=== PATIENT | female | born 1950 | race Caucasian/White ===

== ENCOUNTER 2016-12-24 04:47 | Emergency (ER) | payer MEDICARE, OTHER ==
[~2016-12-24] VITALS: Ht 154.9 cm; Wt 64.5 kg
[~2016-12-24 04:47] MED LIST: 5-HTP100 MG PO; ADVIL200 MG PO; ALPHA LIPOIC100 MG PO; ASPIRIN 81M81 MG/TA2 PO; ASPIRIN E.C. 8181 MG PO; BENADRYL25 M2 PO; BENADRYL50 MG; CALCIUM600 M1 PO; CHOLESTOFF; CHOLESTOFF PO; CO Q-1050 MG PO; COQ10; COQ10 PO; CURCUMIN; CURCUMIN PO; FISH OIL1000 MG PO; FOLIC ACID PO; FOLIC ACID0.8 MG PO; GABA PO; L-CARNITINE500 MG PO; M2 MAGNESIUM100 MG PO; MAGNESIUM CITRA1 TAB PO; MAGNESIUM100 MG PO; MANGANESE; MANGANESE PO; MELATONIN3 MG PO; NATURAL E400 IU PO; NATURE'S BLEN5000 IU PO; NIACIN750 MG PO; OCUVITE ADULT1 SGL PO; OCUVITE1 TA1 PO; OMEGA 3 KRILL OIL; OMEGA 3 KRILL OIL PO; OMEGA 31000 MG; OMEGA-3 FISH1000 MG PO; OMEGA-31000 MG PO; PHARMASSURE RE250 MG PO; RETIN A 0.01% TP; RETIN A MICRO TP; RHODIOLA; RHODIOLA PO; TAURINE PO; VAGIFEM10 MCG VG; VITA PO; VITAMIN; VITAMIN B-12100 MCG PO; VITAMIN B6250 MG PO; VITAMIN C PUR1000 MG PO; VITAMIN D31 LIQ; VITAMIN D31000 IU; VITAMIN D31000 IU PO; VITAMIN D5000 IU PO; VITAMIN E100 I3 PO; VITAMIN K100 MCG; VITAMIN K100 MCG PO; VITAMIN PO; ZINC; ZINC PO; ZINC10 M1 PO; [UNRECOGNIZED DRUG - OTHER]; [UNRECOGNIZED DRUG - OTHER]; [UNRECOGNIZED DRUG - OTHER] PO; [UNRECOGNIZED DRUG - OTHER] PO
[2016-12-24 04:48] VITALS: TEMP 98.1
[2016-12-24] MEDS ORDERED: VAGIFEM10 MCG VG (04:56)
[2016-12-24] MEDS ORDERED: RETIN-A CR0.1 45GM TP (04:56)
[2016-12-24] MEDS ORDERED: LATISSE 5 ML5 ML TOP (04:56)
[2016-12-24] MEDS ORDERED: SYNTHROID0.075 MG/T PO (04:56)
[2016-12-24 05:44] LABS: ADJUSTED CALCIUM 8.9 mg/dL (8.4-10.2); ALANINE AMINOTRANSFERASE 37 U/L (9-52); ALBUMIN 4.6 gm/dL (3.5-5.0); ALKALINE PHOSPHATASE 84 U/L (50-136); ANION GAP 14 mmol/L (7-16); BILIRUBIN,TOTAL 1.1 mg/dL (0.0-1.0); BLOOD UREA NITROGEN 19 mg/dL (7-17); CALCIUM 9.4 mg/dL (8.4-10.2); CARBON DIOXIDE 23 mmol/L (22-30); CHLORIDE 103 mmol/L (98-107); GLUCOSE 167 mg/dL (74-106); LIPASE 140 U/L (23-300); POTASSIUM 3.6 mmol/L (3.4-5.0); SODIUM 139 mmol/L (137-145); TOTAL PROTEIN 7.7 gm/dL (6.4-8.2)
[2016-12-24 05:45] LABS: C-REACTIVE PROTEIN < 0.5 mg/dL (0.0-0.9)
[2016-12-24 05:48] LABS: PH 6 (5-8); SQUAMOUS EPITHELIAL 0-2 /hpf; URINE APPEARANCE Clear; URINE BACTERIA None Seen /hpf; URINE BILIRUBIN Negative (NEGATIVE); URINE BLOOD 2+ (NEGATIVE); URINE COLOR Yellow; URINE GLUCOSE Negative (NEGATIVE); URINE KETONE 1+ (NEGATIVE); URINE RBC >50 /hpf; URINE UROBILINOGEN Negative (NEGATIVE)
[2016-12-24 05:49] LABS: URINE WBC 0-2 /hpf
[2016-12-24 07:06] LABS: BASO % 0.3 % (0.0-2.0); EOS % 0.3 % (0-4.0); GRAN # 7.4 (1.4-6.5); GRAN % 78.4 % (42.2-75.2); HEMATOCRIT 42.6 % (37.0-47.0); HEMOGLOBIN 14.2 g/dl (12.5-16.0); LYMPH # 1.5 (1.2-3.4); MEAN CELL VOLUME 95 fl (80.0-100.0); MEAN CORPUSCULAR HEMOGLOBIN 32 pg (27.0-31.0); MEAN CORPUSCULAR HGB CONC 33 g/dl (33.0-37.0); MEAN PLATELET VOLUME 10.2 fl (7.4-10.4); MONO # 0.4 (0.1-0.6); MONO % 4.7 % (1.7-9.3); PLATELET COUNT 217 K/mm3 (130-400); REDCELL DISTRIBUTION WIDTH-CV 13.2 % (11.5-14.5); WHITE BLOOD COUNT 9.4 K/mm3 (4.8-10.8)
[2016-12-24] MEDS ORDERED: ZOFRAN ODT4 MG PO (08:10)
[2016-12-24] MEDS ORDERED: PERCOCET 325 MG1 TA2 PO (08:10)
[2016-12-24 08:16] VITALS: BP 122/73
[2016-12-24 08:59] VITALS: PULSE 73
== END 2016-12-24 08:52 | disposition home or self-care (01) ==
LOC: COL.ER 04:47
PROVIDERS: Emergency Medicine
DX: N13.2 Hydronephrosis with renal and ureteral calculous obstruction (principal); Z87.442 Personal history of urinary calculi
CPT/HCPCS: J2405; J7030; Q9967

== ENCOUNTER → 2016-12-26 | Outpatient (CLI) | payer MEDICARE, OTHER ==
[~2016-12-26] MED LIST changes: +LATISSE 5 ML5 ML TOP; +PERCOCET 325 MG1 TA2 PO; +RETIN-A CR0.1 45GM TP; +SYNTHROID0.075 MG/T PO; +ZOFRAN ODT4 MG PO
== END ==
LOC: MC.RAD 13:26
DX: Z12.31 Encounter for screening mammogram for malignant neoplasm of breast (principal)

== ENCOUNTER 2016-12-28 11:58 | Day surgery (SDC) | payer MEDICARE, OTHER ==
[2016-12-28] VITALS (7 sets, daily range): BP systolic 143–176; BP diastolic 74–89; PULSE 51–65; TEMP 97.4–97.8
[~2016-12-28] VITALS: Ht 154.9 cm; Wt 29.5 kg
[2016-12-28] MEDS ORDERED: VAGIFEM10 MCG VG (13:21)
== END 2016-12-28 17:25 | disposition home or self-care (01) ==
LOC: SDCO 11:58
DX: N20.1 Calculus of ureter (principal); C44.91 Basal cell carcinoma of skin, unspecified
CPT/HCPCS: C1769; C2617; J0690; J1100; J1885; J2405; J2704; J3010; J7120; Q9967

== ENCOUNTER 2017-07-19 17:26 | Emergency (ER) | payer MEDICARE, OTHER ==
[~2017-07-19] VITALS: Ht 154.9 cm; Wt 62.3 kg
[2017-07-19 17:41] VITALS: TEMP 98.2
[2017-07-19] MEDS ORDERED: ASPIRIN 81M81 MG/TA2 PO (18:27)
[2017-07-19] MEDS ORDERED: NORCO 325 MG-7.1 TAB PO (19:12)
[2017-07-19 19:30] VITALS: BP 146/91; PULSE 69
== END 2017-07-19 19:32 | disposition home or self-care (01) ==
LOC: COL.ER 17:26
DX: S52.502A Unspecified fracture of the lower end of left radius, initial encounter for closed fracture (principal); S52.602A Unspecified fracture of lower end of left ulna, initial encounter for closed fracture; E03.9 Hypothyroidism, unspecified; Z79.82 Long term (current) use of aspirin; W10.9XXA Fall (on) (from) unspecified stairs and steps, initial encounter; Y92.009 Unspecified place in unspecified non-institutional (private) residence as the place of occurrence of the external cause

== ENCOUNTER 2017-11-08 08:06 | Inpatient (IN) | payer MEDICARE, OTHER ==
[2017-11-08] VITALS (11 sets, daily range): BP systolic 104–134; BP diastolic 71–88; PULSE 68–95; TEMP 97.8–98.1; O2SAT 93–96
[~2017-11-08] VITALS: Ht 154.9 cm; Wt 63.2 kg
[~2017-11-08 08:06] MED LIST changes: +NORCO 325 MG-7.1 TAB PO
[2017-11-08 08:44] LABS: BASO % 0.4 % (0.0-2.0); EOS % 0.9 % (0-4.0); GRAN # 2.3 (1.4-6.5); GRAN % 50.4 % (42.2-75.2); HEMATOCRIT 45.2 % (37.0-47.0); HEMOGLOBIN 14.8 g/dl (12.5-16.0); LYMPH # 1.8 (1.2-3.4); LYMPH % 40.7 % (20.0-51.0); MEAN CELL VOLUME 95 fl (80.0-100.0); MEAN CORPUSCULAR HEMOGLOBIN 31 pg (27.0-31.0); MEAN CORPUSCULAR HGB CONC 33 g/dl (33.0-37.0); MEAN PLATELET VOLUME 9.8 fl (7.4-10.4); MONO # 0.3 (0.1-0.6); MONO % 7.4 % (1.7-9.3); PLATELET COUNT 190 K/mm3 (130-400); RED BLOOD COUNT 4.75 M/mm3 (4.10-5.30); REDCELL DISTRIBUTION WIDTH-CV 12.8 % (11.5-14.5)
[2017-11-08 09:01] LABS: ALBUMIN 4.6 gm/dL (3.5-5.0); BILIRUBIN,TOTAL 0.6 mg/dL (0.0-1.0); CALCIUM 8.8 mg/dL (8.4-10.2); CREATININE, serum 0.85 mg/dL (0.52-1.25); POTASSIUM 3.3 mmol/L (3.4-5.0); TOTAL PROTEIN 7.7 gm/dL (6.4-8.2)
[2017-11-08 09:09] LABS: PARTIAL THROMBOPLASTIN TIME 29.7 SECONDS (26.0-37.0)
[2017-11-08 09:15] LABS: TROPONIN-I 0.811 ng/mL (0.000-0.034)
[2017-11-08 10:41] LABS: THYROID STIMULATING HORMONE 14.2 uIU/mL (0.465-4.680)
[2017-11-09] VITALS (16 sets, daily range): BP systolic 92–158; BP diastolic 63–107; PULSE 66–99; TEMP 97.5–98.3
[2017-11-09 06:19] LABS: HEMATOCRIT 42.6 % (37.0-47.0); HEMOGLOBIN 13.5 g/dl (12.5-16.0); MEAN CELL VOLUME 98 fl (80.0-100.0); MEAN CORPUSCULAR HEMOGLOBIN 31 pg (27.0-31.0); MEAN CORPUSCULAR HGB CONC 32 g/dl (33.0-37.0); MEAN PLATELET VOLUME 10.2 fl (7.4-10.4); PLATELET COUNT 192 K/mm3 (130-400); RED BLOOD COUNT 4.34 M/mm3 (4.10-5.30); REDCELL DISTRIBUTION WIDTH-CV 13.2 % (11.5-14.5)
[2017-11-09 06:34] LABS: PARTIAL THROMBOPLASTIN TIME 62.3 SECONDS (26.0-37.0)
[2017-11-09 06:37] LABS: CALCIUM 8.6 mg/dL (8.4-10.2); CHOLESTEROL RISK RATIO 4.1; CREATININE, serum 0.82 mg/dL (0.52-1.25); POTASSIUM 3.8 mmol/L (3.4-5.0)
[2017-11-10 00:10] VITALS: BP 130/66; PULSE 69; TEMP 98.3
[2017-11-10 04:29] VITALS: BP 126/67; PULSE 64; TEMP 98.1
[2017-11-10] MEDS ORDERED: LIPITOR 40MG TA40 MG PO (07:54)
[2017-11-10] MEDS ORDERED: TOPROL XL 50MG50 MG PO (07:55)
[2017-11-10 08:10] LABS: BASO % 0.4 % (0.0-2.0); EOS # 0.1 (0.0-0.7); GRAN # 2.7 (1.4-6.5); GRAN % 54.9 % (42.2-75.2); HEMOGLOBIN 12.9 g/dl (12.5-16.0); LYMPH # 1.6 (1.2-3.4); LYMPH % 32.9 % (20.0-51.0); MEAN CELL VOLUME 98 fl (80.0-100.0); MEAN CORPUSCULAR HEMOGLOBIN 32 pg (27.0-31.0); MEAN CORPUSCULAR HGB CONC 32 g/dl (33.0-37.0); MEAN PLATELET VOLUME 10.4 fl (7.4-10.4); MONO # 0.5 (0.1-0.6); MONO % 9.6 % (1.7-9.3); PLATELET COUNT 189 K/mm3 (130-400); RED BLOOD COUNT 4.09 M/mm3 (4.10-5.30); REDCELL DISTRIBUTION WIDTH-CV 13.2 % (11.5-14.5)
[2017-11-10 08:20] LABS: CALCIUM 8.7 mg/dL (8.4-10.2); CREATININE, serum 0.81 mg/dL (0.52-1.25); POTASSIUM 4.1 mmol/L (3.4-5.0)
[2017-11-10 09:54] VITALS: BP 108/76; PULSE 69; TEMP 97.5
== END 2017-11-10 12:55 | disposition home or self-care (01) | DRG 281 ==
LOC: COL.ER 08:06 → ICU 10:13 → JCC 11-09 19:35
PROVIDERS: Emergency Medicine
PROC: B2111ZZ Fluoroscopy of Multiple Coronary Arteries using Low Osmolar Contrast (ICD-10-PCS; principal; 2017-11-09)
PROC: B2151ZZ Fluoroscopy of Left Heart using Low Osmolar Contrast (ICD-10-PCS; 2017-11-09)
PROC: 4A023N7 Measurement of Cardiac Sampling and Pressure, Left Heart, Percutaneous Approach (ICD-10-PCS; 2017-11-09)
DX: I10 Essential (primary) hypertension (principal); I21.A1 Myocardial infarction type 2; I47.1 Supraventricular tachycardia; Z85.850 Personal history of malignant neoplasm of thyroid; E87.6 Hypokalemia
CPT/HCPCS: 99223-AI; 99233-AI; 99239; C1769; J1644; J1650; J2250; J3010; J7030; Q9967

== ENCOUNTER → 2018-01-30 | Outpatient (CLI) | payer MEDICARE, OTHER ==
[~2018-01-30] MED LIST changes: +LIPITOR 40MG TA40 MG PO; +TOPROL XL 50MG50 MG PO
== END ==
LOC: MC.RAD 13:26
DX: Z12.31 Encounter for screening mammogram for malignant neoplasm of breast (principal)

== ENCOUNTER → 2019-02-08 | Outpatient (CLI) | payer MEDICARE, OTHER | LOC: MC.RAD 01-31 13:45 | DX: Z12.31 Encounter for screening mammogram for malignant neoplasm of breast (principal) ==

== ENCOUNTER 2019-09-13 21:42 | Emergency (ER) | payer MEDICARE, OTHER ==
[~2019-09-13] VITALS: Ht 154.9 cm; Wt 64.5 kg
[2019-09-13 22:49] LABS: BASO % 0.1 % (0.0-2.0); EOS # 0.1 (0.0-0.7); EOS % 0.7 % (0-4.0); GRAN # 5.5 (1.4-6.5); GRAN % 77.5 % (42.2-75.2); HEMATOCRIT 42.1 % (37.0-47.0); HEMOGLOBIN 13.8 g/dl (12.5-16.0); LYMPH # 1.2 (1.2-3.4); LYMPH % 16.5 % (20.0-51.0); MEAN CELL VOLUME 96 fl (80.0-100.0); MEAN CORPUSCULAR HEMOGLOBIN 31 pg (27.0-31.0); MEAN CORPUSCULAR HGB CONC 33 g/dl (33.0-37.0); MEAN PLATELET VOLUME 10.1 fl (7.4-10.4); MONO # 0.4 (0.1-0.6); MONO % 5.1 % (1.7-9.3); PLATELET COUNT 174 K/mm3 (130-400); RED BLOOD COUNT 4.41 M/mm3 (4.10-5.30); REDCELL DISTRIBUTION WIDTH-CV 13.1 % (11.5-14.5)
[2019-09-13 22:54] LABS: COLLECTION METHOD CLEAN CATCH
[2019-09-13 23:02] LABS: ALBUMIN 4.1 gm/dL (3.5-5.0); BILIRUBIN,TOTAL 0.3 mg/dL (0.0-1.0); CALCIUM 8.8 mg/dL (8.4-10.2); CREATININE, serum 0.74 (0.52-1.25); POTASSIUM 3.6 mmol/L (3.4-5.0); TOTAL PROTEIN 6.9 gm/dL (6.4-8.2)
[2019-09-13 23:02] LABS: PH 7 (5-8); SQUAMOUS EPITHELIAL None Seen /hpf; URINE APPEARANCE Clear; URINE BACTERIA None Seen /hpf; URINE BILIRUBIN Negative (NEGATIVE); URINE BLOOD 1+ (NEGATIVE); URINE COLOR Straw; URINE GLUCOSE Negative (NEGATIVE); URINE KETONE Trace (NEGATIVE); URINE LEUKOCYTE ESTERASE Negative (NEGATIVE); URINE NITRATE Negative (NEGATIVE); URINE PROTEIN(semi-quant) Negative (NEGATIVE); URINE RBC 0-2 /hpf; URINE UROBILINOGEN Negative (NEGATIVE)
[2019-09-14] MEDS ORDERED: CIPRO 500MG TA500 MG PO ×2 (01:07)
[2019-09-14 01:20] VITALS: BP 136/83; PULSE 75; TEMP 97.8
== END 2019-09-14 01:20 | disposition home or self-care (01) ==
LOC: COL.ER 21:42
PROVIDERS: Emergency Medicine
DX: R10.32 Left lower quadrant pain (principal); Z87.442 Personal history of urinary calculi; Z79.82 Long term (current) use of aspirin
CPT/HCPCS: J1170; J1885; J2405; J7030; Q9967

== ENCOUNTER → 2020-06-18 | Outpatient (CLI) | payer MEDICARE, OTHER ==
[~2020-06-18] MED LIST changes: +CIPRO 500MG TA500 MG PO
== END ==
LOC: MC.RAD 13:23
DX: Z12.31 Encounter for screening mammogram for malignant neoplasm of breast (principal)